=== PATIENT | female | born 1990 | race Caucasian/White ===

== ENCOUNTER 2017-06-17 16:18 | Emergency (ER) | payer OTHER ==
[2017-06-17] MEDS: fentaNYL PF VIAL 100 MCG/2 ML VIAL IV ×2 (17:01)
[2017-06-17] MEDS: KETOROLAC 30 MG/ML INJ. IV ×2 (20:07)
== END 2017-06-17 21:30 | disposition home or self-care (01) ==
LOC: ER 21:30
DX: S16.1XXA Strain of muscle, fascia and tendon at neck level, initial encounter (principal); S29.012A Strain of muscle and tendon of back wall of thorax, initial encounter; S80.02XA Contusion of left knee, initial encounter; S40.022A Contusion of left upper arm, initial encounter; R51 Headache; J45.909 Unspecified asthma, uncomplicated; V43.52XA Car driver injured in collision with other type car in traffic accident, initial encounter; Y93.I9 Activity, other involving external motion; Y92.410 Unspecified street and highway as the place of occurrence of the external cause; Y99.8 Other external cause status
CPT/HCPCS: 72125; 72128; 73110; 96374; 96375; 99284-25; J1885; J3010